=== PATIENT | male | born 1970 | race Caucasian/White ===

== ENCOUNTER 2016-07-21 19:33 | Emergency (ER) | payer SELFPAY ==
[~2016-07-21] VITALS: Ht 177.8 cm; Wt 59.0 kg
[2016-07-21] MEDS ORDERED: LORAZEPAM INJ 2 MG/ML VIAL ONE (19:34)
[2016-07-21] MEDS ORDERED: HALOPERIDOL LACTATE INJ 5 MG/ML VIAL ONE (19:34)
[2016-07-21] MEDS ORDERED: HALOPERIDOL LACTATE INJ 5 MG/ML VIAL IM ONE (20:00)
[2016-07-21] MEDS ORDERED: LORAZEPAM INJ 2 MG/ML VIAL IM ONE (20:00)
[2016-07-22 05:23] VITALS: BP 116/74
== END 2016-07-22 05:23 | disposition home or self-care (01) ==
LOC: EDBD 19:36 → ER 19:36
DX: F15.10 Other stimulant abuse, uncomplicated (principal)
CPT/HCPCS: 96372 ×2; 99284; A4606; J1630; J2060; Z7610